=== PATIENT | male | born 1940 | race Hispanic/Latino ===

== ENCOUNTER 2019-09-22 10:35 | Outpatient (CLI) | payer MEDICARE, OTHER ==
--- NOTE | 2019-09-22 11:15 | XRay Report ---
CHEST 2 VIEWS INDICATION: COUGH. COMPARISON: None. FINDINGS: Support devices: None. Heart: Within normal limits. Pulmonary vasculature: Normal. Lungs/pleura: The lungs are hyperexpanded and hyperlucent. No airspace disease. No pulmonary nodule o r mass. No pleural effusion. No pneumothorax. Additional findings: None. IMPRESSION: 1. No acute findings. 2. COPD. Signer Name: Gary Figueredo MD Signed: 09/22/2019 11:10 AM Workstation Name: [id number]
== END 2019-09-22 10:36 | disposition home or self-care (01) ==
LOC: SPVIMAG 10:35
PROVIDERS: ATTEND Internal Medicine Hematology & Oncology
DX: J44.9 Chronic obstructive pulmonary disease, unspecified (principal); C61 Malignant neoplasm of prostate; C91.90 Lymphoid leukemia, unspecified not having achieved remission; R53.81 Other malaise
CPT/HCPCS: 71046

== ENCOUNTER 2022-03-20 01:08 | Emergency (ER) | payer MEDICARE, OTHER ==
--- NOTE | 2022-03-20 01:50 | Emergency Department Report ---
ED CPR HPI - General Stated Complaint: CARDIAC ARREST Time Seen by Provider: 03/20/22 01:08 Source: EMS Mode of arrival: Stretcher Limitations: Other (Patient in active cardiac arrest, undergoing CPR by EMS upon arrival) - History of Present Illness Initial Comments: 81-year-old male with history per EMS of prostate cancer, leukemia, brought in by EMS status post witnessed cardiac arrest. Patient unable to provide HPI as patient is in active cardiac arrest upon arrival. Per EMSs report, telephone call was made to EMS at 12:10 AM by family stating that the patient had a wi tnessed cardiac arrest after he fell and became unresponsive. Per EMSs report they do not know the time of onset of the patient's symptoms, specifically what time he became unresponsive. EMS reports that they arrived on the scene at 12:13 AM. Patient was found lying supine on the bed, unresponsive. Patient was intubated by EMS and a right lower extremity IO was placed. ACLS protocol initiated. He was given 3 rounds of epinephrine. ROSC was not obtained. EMS reports patient is "full code." No further information provided. Complaint: found unresponsive Place: home Bystander CPR Performed: No AED Applied by Bystander/Box Spring Maker: Yes Shock Advised: No Initial Findings in the Field: unresponsive ROSC in the Field: No Associated Injuries: Yes (Patient injured head per EMS with support, was found to have abrasion over ) Associated Symptoms: other (Unable to obtain, unknown) Treatments Prior to Arrival: intubation, chest compressions, epinephrine mgs # ED Review of Systems ROS: Stated complaint: CARDIAC ARREST Other details as noted in HPI Comment: Unobtainable due to pts medical conditions ED Past Medical Hx - Past Medical History Previous Medical History?: Yes Additional medical history: Prostate cancer, leukemia - Surgical History Additional Surgical History: Unknown - Social History Smoking Status: Unknown if ever smoked Substance Use Type: Other (Unknown) ED Physical Exam - General Limitations: Other (Patient unresponsive, undergoing active ACLS and CPR by EMS at the time of the patient's arrival at 1:07 AM) General appearance: other (Unresponsive) - Head Head exam: Present: normocephalic, other (Patient noted to have abrasion to left forehead) - Eye Eye exam: Present: normal appearance, other (Pupils 4 mm bilaterally fixed unreactive to light) Pupils: Present: other - ENT ENT exam: Present: mucous membranes dry, normal external ear exam, other (ET tube in oropharynx) - Neck Neck exam: Present: normal inspection, full ROM - Respiratory Respiratory exam: Present: decreased breath sounds, other (Patient does not have spontaneous respirations, respirations being provided by EMS) - Cardiovascular Cardiovascular Exam: Present: other (No audible cardiac rhythms appreciated) - GI/Abdominal GI/Abdominal exam: Present: soft, hypoactive bowel sounds - Rectal Rectal exam: Present: deferred - Extremities Exam Extremities exam: Present: normal inspection, other (Greater than 3-second cap refill) - Back Exam Back exam: Present: normal inspection, other (Unable to test range of motion, patient unresponsive) - Neurological Exam Neurological exam: Present: other (GCS 3, patient intubated, unresponsive, no spontaneous movements observed) - Psychiatric Psychiatric exam: Present: other (Patient unresponsive) - Skin Skin exam: Present: dry, normal color, other (Cool to touch) ED Course Vital Signs 03/20/22 01:10 Pulse Rate 0 L Respiratory 0 L Rate ED Medical Decision Making - Medical Decision Making 81-year-old male with per EMS with history of leukemia, prostate cancer, unknown CODE STATUS per EMS, brought in by EMS status post witnessed cardiac arrest which occurred at approximately 12:10 AM. Per EMSs report they arrived at the scene at 12:13 AM and patient was in pulseless electrical activity cardiac arrest. Patient was intubated by EMS. Right lower extremity IO was placed by EMS. Patient was given 3 rounds of epinephrine without any successful ROSC. Patient arrived to the emergency department intubated unresponsive and in persistent PEA arrest. From 1:07 AM until 1:18 AM, patient had no ROSC and continue to undergo aggressive resuscitation via ACLS protocol. Patient given multiple rounds of epinephrine. Bicarbonate and calcium chloride were given as well. 01:19 a.m.: Rhythm on potline monitor demonstrates ventricular fibrillation. Patient was shocked once via 200 J. ACLS protocol continues to be resumed. 0 1:21 AM: Nurse reports patient has faint palpable femoral pulse. Bedside cardiac ultrasound demonstrates faint cardiac motion. Verbal orders given to start the patient on multiple medications. At 1:36 AM, patient noted to become bradycardic and no palpable pulses were felt in his femoral or carotid region by myself or staff members. ACLS protocol initiated again. Patient given multiple rounds of epinephrine. ROSC unable to be obtained. 1:43 AM: Bedside cardiac ultrasound performed by me. Patient found to have no spontaneous cardiac motion. Time of announced 1:44 AM. Critical Care Time: Yes Critical care time in (mins) excluding proc time.: 30 (ACLS: PEA/Asystole Arrest) Critical care attestation.: If time is entered above; I have spent that time in minutes in the direct care of this critically ill patient, excluding procedure time. ED Disposition Clinical Impression: Cardiac arrest Disposition: 20 Is pt being admited?: No Does the pt Need Aspirin: No Condition: Stable
--- NOTE | 2022-03-20 09:01 | Electrocardiograph Report ---
[facility] Test Date: 2022-03-20 Test Time: 01:33:15 Pat Name: ANU LINDA Department: Room: Gender: M Outside Sales Executive: MARY : 1940 Requested By: LADAN GARCIA Order Number: [id number] Reading MD: Lance Villarreal Measurements Intervals [place] Rate: 66 P: RI: QRS: 82 QRSD: 219 T: 260 QT: 551 QTc: 560 Interpretive Statements Junctional rhythm Nonspecific intraventricular conduction delay ST elevation secondary to IVCD Abnormal T, probable ischemia, lateral leads Prolonged QT interval TALL T WAVES, CONSIDER HYPERKALEMIA No previous ECG available for comparison Electronically Signed On 03-20-2022 9:01:22 EDT by Lance Villarreal
[2022-03-20] MEDS ORDERED: EPINEPHrine 1 MG/10 ML SYRINGE ONE (13:03)
[2022-03-20] MEDS ORDERED: CALCIUM CHLORIDE 1,000 MG/10 ML SYRINGE IV ONE (13:03)
[2022-03-20] MEDS ORDERED: SODIUM BICARB 8.4% 50 MEQ/50 ML SYRINGE IV ONE (13:03)
[2022-03-20] MEDS ORDERED: ATROPINE 0.1% (1 MG/10 ML) CARDIAC SYRINGE ONE (13:03)
== END 2022-03-20 06:43 ==
LOC: ED 01:08
DX: I46.9 Cardiac arrest, cause unspecified (principal)
CPT/HCPCS: 92950; 93005; 99291; J0171; J0461; J3490